=== PATIENT | female | born 1970 | race Caucasian/White ===

== ENCOUNTER 2020-01-02 20:17 | Emergency (ER) | payer BC ==
--- NOTE | 2020-01-02 20:39 | PDOC ---
Rapid Medical Evaluation Chief Complaint: Chest Pain Time Seen by Provider: 01/02/20 20:35 Medical Evaluation: 01/02/20 20:37 I performed a brief in-person evaluation of this patient. Pt is a 49 y/o female with a h/o HTN, DM who presents with chest tightness since 2 pm which has been waxing and waning. The patient denies any SOB, n/v/d/c. She denies any diaphoresis. Pertinent physical exam findings: nontoxic, speaking in full sentences, walking without ataxia I have ordered the following: cardiac labs, monitor, ekg, cxr Patient to proceed to ED for further evaluation. Discharge Disposition - Diagnosis Chest pain - Referrals - Patient Instructions - Post Discharge Activity
[2020-01-02 20:42] VITALS: BMI 37.4
--- NOTE | 2020-01-02 21:22 | PDOC ---
Attending Attestation - Resident Resident Name: Mayi Shields - ED Attending Attestation I have performed the following: I have examined & evaluated the patient, The case was reviewed & discussed with the resident, I agree w/resident's findings & plan - HPI HPI: 01/03/20 00:59 Pt was having an upsetting argument on he phone around 2PM and developed left sided CP. She has DM, HTN, obesity and fam hx of CAD. She is not a smoker. She has no other complaints. Pt states that she decided to come in to make sure everything is okay. Pt appears well and she is ambulating about the ER. - Physicial Exam PE: 01/03/20 01:01 Obese afebrile HEENT normal neuro exam normal; no gross focal deficits. Pt has normal heart and lungs Pt has no abd pain Pt has no flank pain No edema of extremities - Medical Decision Making 01/02/20 22:46 cxr NORMAL LABS NORMAL 2ND CARDIAC ENZYME IS PENDING 01/03/20 01:02 If normal, she can follow with her air pollution engineer as an outpatient. 01/03/20 01:52 2nd trop normal and she is good to be discharged. Heart Score/ECG Review - History History: Slightly suspicious - Electrocardiogram EKG: Normal - Age Age: 45-65 - Risk Factors Risk Factors Heart Score: Yes Hx Hypertension, Yes Hx Diabetes, Yes Positive family hx of cardiac disease, Yes Hx Obesity Based on the list above the patient has:: >/=3 risk factors or Hx atherosclerotic disease - Troponin Troponin: </= normal limit (Pt will get a 2nd troponin.) - Score Heart Score - Total: 3 - ECG Intrepretation Rhythm: Regular Rhythm - [place]: Normal - P and NV Delta Wave(s) Present: No WPW: No - QRS Poor R Wave Progression: No Q Wave Present: No - ST and T Early Repolarization: No Non Specific ST-T Wave changes: No Flattened T Waves: No Prolonged Q-T Interval: No - ECG Impressions Normal ECG: No Ischemic Changes: No Bradycardia: No Torsades jose Pointes: No WPW: No Discharge - Discharge Information Problems reviewed: Yes Clinical Impression/Diagnosis: Chest pain Condition: Stable Disposition: HOME - Follow up/Referral - Patient Discharge Instructions Patient Printed Discharge Instructions: DI for Chest Pain Additional Instructions: You were seen in the ED today for chest pain. You were given a physical exam, CXR, EKG, and labs. Everything came back normal. Follow-up with your air pollution engineer in the next 2-3 days. Please return to the ED with new or worsening symptoms of chest pain, SOB, nausea, vomiting. - Post Discharge Activity
--- NOTE | 2020-01-02 21:28 | PDOC ---
History of Present Illness - General Chief Complaint: Chest Pain Stated Complaint: CHEST PAIN Time Seen by Provider: 01/02/20 20:35 History Source: Patient Exam Limitations: No Limitations - History of Present Illness Initial Comments: HPI: Patient is a 49 y/o F non-smoker with a PMH of HTN and DM who presented to the ED due to an episode of "chest tightness" she experienced earlier. She reports that she was talking to her cousin about something upsetting when she felt left sided tightness radiating to her left shoulder. The episode lasted 5-10 minutes and improved when she stopped talking about the upsetting event. She denied accompanying SOB, palpitations, diaphoresis, nausea, vomiting, lightheadedness or blurry vision. The patient has not experienced chest pain since then. She can reproduce the pain to a lesser degree with palpation, as well as with movement./ ROS: (+): Left chest wall pain (-): SOB, palpitations, diaphoresis, nausea, vomiting, lightheadedness, blurry vision, abdominal pain. PMH: DM, HTN Meds: Metformin, HCTZ Allergies: Denied SHx: Non-smoker PE: General: Patient is awake, alert, oriented x3. Head: No signs of trauma, normocephalic. Eyes: PERRL Lungs: No distress, speaks in full sentences, clear to auscultation bilaterally. Heart: RRR, normal S1 and S2 Abdomen: Soft, nontender Extremities: No edema Neurological: Normal gait, no focal sensorimotor deficits MDM: Patient is a 49 y/o female with cardiac risk factors presenting to the ED due to an episode of chest pain at 2pm today. Given the risk factors, CBC, CMP, cardiac panel, EKG, and CXR were done. First troponin was negative. The patient had a HEART score of 3. A repeat troponin will be done at 1:30 a.m. The patient has a nail machine operator (Dr. Maik Minor at [facility]) who she can follow up with. 01/02/20 22:58 01/02/20 23:01 Past History - Medical History Allergies/Adverse Reactions: Allergies Allergy/AdvReac Type Severity Reaction Status Date / Time No Known Allergies Allergy Verified 01/02/20 20:42 Cardiac Disorders: Yes COPD: No Dialysis: Yes HTN: Yes - Psycho-Social/Smoking History Smoking History: Never smoked Review of Systems - Review of Systems Constitutional: No: Chills, Diaphoresis, Fever, Night Sweats HEENTM: No: Blurred Vision, Double Vision Respiratory: No: Cough, Stridor, Wheezing Cardiac (ROS): Yes: Chest Pain (left chest wall). No: Palpitations ABD/GI: No: Constipated, Diarrhea : No: Frequency, Flank Pain Musculoskeletal: No: Muscle Weakness, Joint Stiffness Integumentary: No: Bruising, Erythema Neurological: No: Headache, Numbness, Tingling Hematologic/Lymphatic: No: Anemia, Blood Clots *Physical Exam - Vital Signs Last Vital Signs Temp Pulse Resp BP Pulse Ox 98.4 F 85 18 119/80 99 01/02/20 20:35 01/02/20 20:35 01/02/20 20:35 01/02/20 20:35 01/02/20 20:35 Heart Score/ECG Review - History History: Slightly suspicious - Electrocardiogram EKG: Normal - Age Age: 45-65 - Risk Factors Risk Factors Heart Score: Yes Hx Hypertension, Yes Hx Diabetes, Yes Positive family hx of cardiac disease, Yes Hx Obesity Based on the list above the patient has:: >/=3 risk factors or Hx atherosclerotic disease - Troponin Troponin: </= normal limit - Score Heart Score - Total: 3 - ECG Intrepretation Rhythm: Regular Rhythm - [place]: Normal - ECG Impressions Normal ECG: Yes Non-specific ST Elevation: No Ischemic Changes: No ED Treatment Course - LABORATORY CBC & Chemistry Diagram: 01/02/20 21:20 01/02/20 21:20 Discharge - Discharge Information Problems reviewed: Yes Clinical Impression/Diagnosis: Chest pain Condition: Stable Disposition: HOME - Admission No - Follow up/Referral - Patient Discharge Instructions Patient Printed Discharge Instructions: DI for Chest Pain Additional Instructions: You were seen in the ED today for chest pain. You were given a physical exam, CXR, EKG, and labs. Everything came back normal. Follow-up with your nail machine operator in the next 2-3 days. Please return to the ED with new or worsening symptoms of chest pain, SOB, nausea, vomiting. - Post Discharge Activity
[2020-01-02 21:49] LABS: BASO % 0.5 % (0-2.0); EOS % 1.5 % (0-4.5); HEMATOCRIT 39.4 % (32.4-45.2); HEMOGLOBIN 12.8 GM/dL (10.7-15.3); LYMPH % 41.2 % (8-40); MCH 26.1 pg (25.7-33.7); MCHC 32.5 g/dl (32.0-36.0); MEAN CELL VOLUME 80.1 fl (80-96); MEAN PLT VOLUME 8.8 fl (7.5-11.1); MONO % 6.4 % (3.8-10.2); NEUT % 50.4 % (42.8-82.8); PLATELET COUNT 233 K/MM3 (134-434); RBC 4.92 M/mm3 (3.60-5.2); RDW 13.1 % (11.6-15.6); WHITE BLOOD COUNT 7.6 K/mm3 (4.0-10.0)
[2020-01-02 21:58] LABS: INR 0.93 (0.83-1.09)
[2020-01-02 22:01] LABS: ACTIVATED PTT 29.3 SECONDS (25.2-36.5)
[2020-01-02 22:24] LABS: ALBUMIN 3.4 g/dl (3.4-5.0); BILIRUBIN,TOTAL 0.2 mg/dL (0.2-1); BLOOD UREA NITROGEN 10.5 mg/dL (7-18); CREATININE 0.7 mg/dL (0.55-1.3); MAGNESIUM 1.8 mg/dL (1.8-2.4); POTASSIUM 3.8 mmol/L (3.5-5.1); TOT PROT 7.3 g/dl (6.4-8.2)
[2020-01-03 02:15] VITALS: BP 128/80; PULSE 72; TEMP 98.3
--- NOTE | 2020-01-04 14:11 | EKG ---
Test Reason : Blood Pressure : / mmHG Vent. Rate : 083 BPM Atrial Rate : 083 BPM P-R Int : 154 ms QRS Dur : 094 ms QT Int : 396 ms P-R-T Axes : 044 030 047 degrees QTc Int : 465 ms NORMAL SINUS RHYTHM NORMAL ECG WHEN COMPARED WITH ECG OF 27-JUN-2008 16:35, NO SIGNIFICANT CHANGE WAS FOUND Confirmed by LATRELL HAWKINS MD ([id number]) on 01/04/2020 2:11:01 PM Referred By: Confirmed By:LATRELL HAWKINS MD
== END 2020-01-03 02:07 | disposition home or self-care (01) ==
LOC: JER 20:17
DX: R07.9 Chest pain, unspecified (principal)
CPT/HCPCS: 36415; 71046-TC-FY; 80053; 82550; 83735; 84484; 85025; 85610; 85730; 93005; 93010; 99285-25

== ENCOUNTER 2020-09-19 04:19 | Emergency (ER) | payer BC ==
[2020-09-19 04:47] VITALS: PULSE 65; TEMP 98; BMI 37.0
[2020-09-19 07:46] VITALS: BP 122/62
== END 2020-09-19 07:46 | disposition home or self-care (01) ==
LOC: JER 04:19
DX: R07.9 Chest pain, unspecified (principal)
CPT/HCPCS: 36415; 84484; 93005; 93010; 99284-25

== ENCOUNTER 2022-01-05 22:39 | Emergency (ER) | payer BC, OTHER ==
[2022-01-05 22:55] VITALS: BP 133/72; PULSE 92; TEMP 98.9; BMI 41.5
== END 2022-01-05 23:53 | disposition home or self-care (01) ==
LOC: JER 22:39
DX: L03.313 Cellulitis of chest wall (principal)
CPT/HCPCS: 99283-25

== ENCOUNTER 2022-01-09 01:56 | Inpatient (IN) | payer OTHER ==
[2022-01-09 03:57] LABS: BASO % 0.3 % (0-2.0); EOS % 1.9 % (0-4.5); HEMATOCRIT 35.3 % (32.4-45.2); HEMOGLOBIN 11.7 GM/dL (10.7-15.3); MCH 26.1 pg (25.7-33.7); MCHC 33.3 g/dl (32.0-36.0); MEAN CELL VOLUME 78.6 fl (80-96); MEAN PLT VOLUME 8.4 fl (7.5-11.1); NEUT % 57.8 % (42.8-82.8); PLATELET COUNT 249 10^3/uL (134-434); RBC 4.49 M/mm3 (3.60-5.2); RDW 14.2 % (11.6-15.6); WHITE BLOOD COUNT 7.8 K/mm3 (4.0-10.0)
[2022-01-09 04:20] LABS: CALCIUM 9.2 mg/dL (8.5-10.1)
[2022-01-09 04:21] LABS: ALBUMIN 3.4 g/dl (3.4-5.0); BLOOD UREA NITROGEN 18.4 mg/dL (7-18)
[2022-01-09 04:24] LABS: CREATININE 0.7 mg/dL (0.55-1.3)
[2022-01-09 04:26] LABS: BILIRUBIN,TOTAL 0.2 mg/dL (0.2-1); TOT PROT 7.7 g/dl (6.4-8.2)
[2022-01-09] MEDS ORDERED: PIPERACILLIN/TAZOB 4.5 GM 4.5 GM in DEXTROSE 5%-WATER 100 ML IVPB ONE (05:26)
[2022-01-09] MEDS ORDERED: VANCOMYCIN 1 GM in D5W (PRE-DOCKED) 1,000 MG/250 ML IVPB ONE (05:26)
[2022-01-09] MEDS ORDERED: PIPERACILLIN/TAZOB 4.5 GM 4.5 GM/100 ML BAG IVPB ONE (05:36)
[2022-01-09] MEDS ORDERED: VANCOMYCIN 1 GRAM (PRE-DOCKED) 1,000 MG/250 ML BAG IVPB ONE (05:37)
[2022-01-09] MEDS ORDERED: HYDROCHLOROTHIAZIDE 25 MG TABLET (FP) ONE (11:18)
[2022-01-09] MEDS ORDERED: VALSARTAN 80 MG TABLET ONE (11:18)
[2022-01-09] MEDS: HYDROCHLOROTHIAZIDE 25 MG TABLET (FP) PO SCH (11:37)
[2022-01-09] MEDS: VALSARTAN 80 MG TABLET PO SCH (11:37)
[2022-01-09] MEDS: INSULIN SLIDING SCALE (NOVOLOG) 1 VIAL SQ SCH ×3 (12:25→22:51)
[2022-01-09] MEDS ORDERED: PIPERACILLIN/TAZOB 3.375 GM 3.375 GM in DEXTROSE 5%-WATER - 50 ML IVPB SCH ×2 (14:00→18:00)
[2022-01-09] MEDS ORDERED: PIPERACILLIN/TAZOB 3.375 GM 3.375 GM/50 ML BAG IVPB ONE (18:03)
[2022-01-09] MEDS: PIPERACILLIN/TAZOB 3.375 GM 3.375 GM in DEXTROSE 5%-WATER - 50 ML IVPB SCH (18:21)
[2022-01-09 19:17] VITALS: BMI 37.8
[2022-01-10] MEDS ORDERED: PIPERACILLIN/TAZOBACTAM 3.375 GM VIAL IVPB ONE ×3 (01:53→16:47)
[2022-01-10] MEDS ORDERED: DEXTROSE 5%-WATER - 50 ML IVPB ONE ×3 (01:53→16:47)
[2022-01-10] MEDS: PIPERACILLIN/TAZOB 3.375 GM 3.375 GM in DEXTROSE 5%-WATER - 50 ML IVPB SCH ×3 (01:59→17:23)
[2022-01-10] MEDS: INSULIN SLIDING SCALE (NOVOLOG) 1 VIAL SQ SCH ×4 (06:46→21:56)
[2022-01-10] MEDS ORDERED: INSULIN (NOVOLOG) ASPART 100 UNITS/ML 10ML VIAL ONE (10:18)
[2022-01-10] MEDS: VALSARTAN 80 MG TABLET PO SCH (10:32)
[2022-01-10] MEDS: HYDROCHLOROTHIAZIDE 25 MG TABLET (FP) PO SCH (10:32)
[2022-01-10 10:57] LABS: BASO % 0.2 % (0-2.0); EOS % 1.7 % (0-4.5); HEMATOCRIT 36.6 % (32.4-45.2); LYMPH % 34.3 % (8-40); MCH 25.9 pg (25.7-33.7); MCHC 32.7 g/dl (32.0-36.0); MEAN CELL VOLUME 79.2 fl (80-96); MEAN PLT VOLUME 8.8 fl (7.5-11.1); MONO % 5.2 % (3.8-10.2); NEUT % 58.6 % (42.8-82.8); PLATELET COUNT 260 10^3/uL (134-434); RBC 4.62 M/mm3 (3.60-5.2); RDW 13.8 % (11.6-15.6); WHITE BLOOD COUNT 6.8 K/mm3 (4.0-10.0)
[2022-01-10 11:24] LABS: ALBUMIN 3.2 g/dl (3.4-5.0); BLOOD UREA NITROGEN 14.4 mg/dL (7-18); CALCIUM 9.3 mg/dL (8.5-10.1)
[2022-01-10 11:28] LABS: CREATININE 0.7 mg/dL (0.55-1.3)
[2022-01-10 11:29] LABS: BILIRUBIN,TOTAL 0.2 mg/dL (0.2-1); TOT PROT 7.2 g/dl (6.4-8.2)
[2022-01-11] MEDS ORDERED: DEXTROSE 5%-WATER - 50 ML IVPB ONE ×2 (02:38→15:45)
[2022-01-11] MEDS ORDERED: PIPERACILLIN/TAZOBACTAM 3.375 GM VIAL IVPB ONE ×3 (02:38→15:45)
[2022-01-11] MEDS: PIPERACILLIN/TAZOB 3.375 GM 3.375 GM in DEXTROSE 5%-WATER - 50 ML IVPB SCH ×3 (02:41→17:32)
[2022-01-11] MEDS: INSULIN SLIDING SCALE (NOVOLOG) 1 VIAL SQ SCH ×4 (06:23→22:45)
[2022-01-11] MEDS: VALSARTAN 80 MG TABLET PO SCH (10:29)
[2022-01-11] MEDS: HYDROCHLOROTHIAZIDE 25 MG TABLET (FP) PO SCH (10:30)
[2022-01-11 10:47] LABS: HEMATOCRIT 37.9 % (32.4-45.2); HEMOGLOBIN 12.3 GM/dL (10.7-15.3); MCH 25.8 pg (25.7-33.7); MCHC 32.5 g/dl (32.0-36.0); MEAN CELL VOLUME 79.4 fl (80-96); MEAN PLT VOLUME 8.8 fl (7.5-11.1); PLATELET COUNT 281 10^3/uL (134-434); RBC 4.77 M/mm3 (3.60-5.2); RDW 13.9 % (11.6-15.6)
[2022-01-11 11:15] LABS: BLOOD UREA NITROGEN 11.8 mg/dL (7-18); CALCIUM 9.2 mg/dL (8.5-10.1)
[2022-01-11 11:19] LABS: CREATININE 0.8 mg/dL (0.55-1.3)
[2022-01-12] MEDS ORDERED: PIPERACILLIN/TAZOBACTAM 3.375 GM VIAL IVPB ONE ×3 (01:47→17:23)
[2022-01-12] MEDS ORDERED: DEXTROSE 5%-WATER - 50 ML IVPB ONE ×3 (01:48→17:23)
[2022-01-12] MEDS: PIPERACILLIN/TAZOB 3.375 GM 3.375 GM in DEXTROSE 5%-WATER - 50 ML IVPB SCH ×3 (02:13→17:32)
[2022-01-12] MEDS: INSULIN SLIDING SCALE (NOVOLOG) 1 VIAL SQ SCH ×4 (06:15→22:22)
[2022-01-12 09:09] LABS: PHOSPHOROUS 3.3 mg/dL (2.5-4.9)
[2022-01-12] MEDS: ENOXAPARIN NA (PORCINE) 40 MG/0.4 ML DISP.SYRIN SQ SCH (10:12)
[2022-01-12] MEDS: HYDROCHLOROTHIAZIDE 25 MG TABLET (FP) PO SCH (10:12)
[2022-01-12] MEDS: VALSARTAN 80 MG TABLET PO SCH (10:12)
[2022-01-12 11:08] LABS: HEMATOCRIT 36.4 % (32.4-45.2); HEMOGLOBIN 12.1 GM/dL (10.7-15.3); MCH 26.1 pg (25.7-33.7); MCHC 33.4 g/dl (32.0-36.0); MEAN CELL VOLUME 78.3 fl (80-96); MEAN PLT VOLUME 8.5 fl (7.5-11.1); PLATELET COUNT 285 10^3/uL (134-434); RBC 4.65 M/mm3 (3.60-5.2); RDW 13.8 % (11.6-15.6); WHITE BLOOD COUNT 7.2 K/mm3 (4.0-10.0)
[2022-01-12 11:45] LABS: CALCIUM 9.3 mg/dL (8.5-10.1)
[2022-01-12 11:46] LABS: BLOOD UREA NITROGEN 11.9 mg/dL (7-18)
[2022-01-12 11:49] LABS: CREATININE 0.8 mg/dL (0.55-1.3)
[2022-01-12 12:32] LABS: MAGNESIUM 2.1 mg/dL (1.8-2.4)
[2022-01-12 12:36] LABS: PHOSPHOROUS 3.4 mg/dL (2.5-4.9)
[2022-01-13] MEDS ORDERED: PIPERACILLIN/TAZOBACTAM 3.375 GM VIAL IVPB ONE ×3 (01:03→17:28)
[2022-01-13] MEDS ORDERED: DEXTROSE 5%-WATER - 50 ML IVPB ONE ×3 (01:03→17:28)
[2022-01-13] MEDS: PIPERACILLIN/TAZOB 3.375 GM 3.375 GM in DEXTROSE 5%-WATER - 50 ML IVPB SCH ×3 (01:11→17:44)
[2022-01-13] MEDS: INSULIN SLIDING SCALE (NOVOLOG) 1 VIAL SQ SCH ×4 (06:44→22:52)
[2022-01-13] MEDS: HYDROCHLOROTHIAZIDE 25 MG TABLET (FP) PO SCH (09:57)
[2022-01-13] MEDS: ENOXAPARIN NA (PORCINE) 40 MG/0.4 ML DISP.SYRIN SQ SCH (09:57)
[2022-01-13] MEDS: VALSARTAN 80 MG TABLET PO SCH (09:57)
[2022-01-14] MEDS ORDERED: DEXTROSE 5%-WATER - 50 ML IVPB ONE ×2 (02:38→10:55)
[2022-01-14] MEDS ORDERED: PIPERACILLIN/TAZOBACTAM 3.375 GM VIAL IVPB ONE ×3 (02:38→17:21)
[2022-01-14] MEDS: PIPERACILLIN/TAZOB 3.375 GM 3.375 GM in DEXTROSE 5%-WATER - 50 ML IVPB SCH ×3 (02:46→18:09)
[2022-01-14] MEDS: INSULIN SLIDING SCALE (NOVOLOG) 1 VIAL SQ SCH ×4 (06:46→21:11)
[2022-01-14] MEDS: HYDROCHLOROTHIAZIDE 25 MG TABLET (FP) PO SCH (11:05)
[2022-01-14] MEDS: VALSARTAN 80 MG TABLET PO SCH ×2 (11:05→11:06)
[2022-01-14] MEDS: ENOXAPARIN NA (PORCINE) 40 MG/0.4 ML DISP.SYRIN SQ SCH (11:06)
[2022-01-14 11:12] LABS: HEMATOCRIT 38.1 % (32.4-45.2); HEMOGLOBIN 12.3 GM/dL (10.7-15.3); MCH 25.6 pg (25.7-33.7); MCHC 32.3 g/dl (32.0-36.0); MEAN CELL VOLUME 79.2 fl (80-96); MEAN PLT VOLUME 8.4 fl (7.5-11.1); PLATELET COUNT 277 10^3/uL (134-434); RBC 4.81 M/mm3 (3.60-5.2); WHITE BLOOD COUNT 6.7 K/mm3 (4.0-10.0)
[2022-01-14 15:09] LABS: CALCIUM 9.2 mg/dL (8.5-10.1)
[2022-01-14 15:10] LABS: BLOOD UREA NITROGEN 14.4 mg/dL (7-18); MAGNESIUM 2.2 mg/dL (1.8-2.4)
[2022-01-14 15:13] LABS: CREATININE 0.8 mg/dL (0.55-1.3)
[2022-01-14 15:14] LABS: PHOSPHOROUS 3.3 mg/dL (2.5-4.9)
[2022-01-15] MEDS ORDERED: DEXTROSE 5%-WATER - 50 ML IVPB ONE ×2 (01:17→10:03)
[2022-01-15] MEDS ORDERED: PIPERACILLIN/TAZOBACTAM 3.375 GM VIAL IVPB ONE ×2 (01:17→10:03)
[2022-01-15] MEDS: PIPERACILLIN/TAZOB 3.375 GM 3.375 GM in DEXTROSE 5%-WATER - 50 ML IVPB SCH ×2 (01:42→10:38)
[2022-01-15] MEDS: INSULIN SLIDING SCALE (NOVOLOG) 1 VIAL SQ SCH ×2 (06:41→12:10)
[2022-01-15 09:41] LABS: HEMATOCRIT 37.2 % (32.4-45.2); HEMOGLOBIN 12.4 GM/dL (10.7-15.3); MCH 25.7 pg (25.7-33.7); MCHC 33.2 g/dl (32.0-36.0); MEAN CELL VOLUME 77.5 fl (80-96); MEAN PLT VOLUME 8.7 fl (7.5-11.1); PLATELET COUNT 272 10^3/uL (134-434)
[2022-01-15 10:24] LABS: MAGNESIUM 2.2 mg/dL (1.8-2.4)
[2022-01-15 10:28] LABS: PHOSPHOROUS 3.6 mg/dL (2.5-4.9)
[2022-01-15] MEDS: ENOXAPARIN NA (PORCINE) 40 MG/0.4 ML DISP.SYRIN SQ SCH (10:38)
[2022-01-15] MEDS: HYDROCHLOROTHIAZIDE 25 MG TABLET (FP) PO SCH (10:39)
[2022-01-15] MEDS: VALSARTAN 80 MG TABLET PO SCH (10:39)
[2022-01-15 11:13] VITALS: BP 131/85; PULSE 81; TEMP 97.4
== END 2022-01-15 14:00 | disposition home or self-care (01) | DRG 385 ==
LOC: JER 01:56 → JERBED 05:54 → J5S 09:24 → JERBED 09:37 → J6S 18:49
PROVIDERS: ADMIT Internal Medicine; ATTEND Internal Medicine
DX: N61.1 Abscess of the breast and nipple (principal); U07.1 COVID-19; E11.9 Type 2 diabetes mellitus without complications; I10 Essential (primary) hypertension; E78.5 Hyperlipidemia, unspecified; E66.9 Obesity, unspecified; Z68.37 Body mass index [BMI] 37.0-37.9, adult
CPT/HCPCS: 36415; 76641-TC-RT; 76642-TC-RT; 80048; 80053; 82962; 83735; 84100; 85025; 85027; 87040; 93005; 93010; 99285-25; C9803-CS; U0003; U0005

== ENCOUNTER 2022-01-22 03:31 | Emergency (ER) | payer OTHER ==
[2022-01-22 04:28] VITALS: BP 118/79; PULSE 76; RESP 17; TEMP 97.8; BMI 36.7
== END 2022-01-22 06:14 | disposition home or self-care (01) ==
LOC: JER 03:31
DX: R21 Rash and other nonspecific skin eruption (principal)
CPT/HCPCS: 99281-25

== ENCOUNTER 2022-01-22 10:30 | Emergency (ER) | payer OTHER ==
[2022-01-22 10:44] VITALS: RESP 18; TEMP 98.3; BMI 41.5
[2022-01-22] MEDS ORDERED: predniSONE 20 MG TABLET (UD) PO ONE (12:26)
[2022-01-22] MEDS ORDERED: predniSONE 20 MG TABLET (UD) ONE (12:40)
[2022-01-22 14:33] VITALS: BP 120/80; PULSE 82
== END 2022-01-22 15:24 | disposition home or self-care (01) ==
LOC: JER 10:30
DX: L50.0 Allergic urticaria (principal)
CPT/HCPCS: 82962; 99283-25